=== PATIENT | female | born 1950 | race Two or more races ===

== ENCOUNTER 2016-08-28 20:57 | Emergency (ER) | payer OTHER ==
[~2016-08-28] VITALS: Ht 170.2 cm; Wt 110.7 kg
[2016-08-28] MEDS ORDERED: LORAZEPAM INJ 2 MG/ML VIAL IV ONE (21:30)
[2016-08-28] MEDS ORDERED: METOCLOPRAMIDE HCL 10 MG/2 ML VIAL ONE (21:47)
[2016-08-28] MEDS ORDERED: IV SET PRIMARY 1 EA INFUS.SET MC ONE (21:48)
[2016-08-28] MEDS ORDERED: IV NS 0.9% 1,000 ML ONE (21:48)
[2016-08-28] MEDS: IV NS 0.9% 1,000 ML BAG IV ONE (21:52)
[2016-08-28] MEDS: METOCLOPRAMIDE HCL 10 MG/2 ML VIAL IV ONE (21:53)
[2016-08-28] MEDS: LORAZEPAM INJ 2 MG/ML VIAL IV ONE (21:55)
[2016-08-28 23:15] VITALS: BP 163/78
== END 2016-08-28 23:16 | disposition home or self-care (01) ==
LOC: ER 20:59
DX: F41.9 Anxiety disorder, unspecified (principal); I10 Essential (primary) hypertension
CPT/HCPCS: A4606; J2765; J7030; Z7610